=== PATIENT | male | born 1980 | race Hispanic/Latino ===

== ENCOUNTER 2021-11-12 22:51 | Emergency (ER) | payer SELFPAY ==
[2021-11-12] MEDS ORDERED: Boostrix 0.5 ML (Tdap) VIAL ONE (23:01)
== END 2021-11-13 00:20 | disposition home or self-care (01) ==
LOC: ERS 22:51
DX: Z48.817 Encounter for surgical aftercare following surgery on the skin and subcutaneous tissue (principal); Z87.891 Personal history of nicotine dependence
CPT/HCPCS: 90471; 90715; 99283